=== PATIENT | male | born 1980 | race Caucasian/White ===

== ENCOUNTER 2023-12-21 10:43 | Emergency (ER) | payer OTHER, SELFPAY ==
[2023-12-21 10:47] LABS: Glucose - Point of Care 89 mg/dl (70-99)
[2023-12-21 10:48] VITALS: BP 147/95
--- NOTE | 2023-12-21 11:35 | ED.GENMED ---
History of Present Illness
General
Chief Complaint: Dizziness
Source: patient
Exam Limitations: none
Time Seen by Provider: 12/21/23 11:15
Nursing documentation reviewed up to this point in time: agreed with
Travel History
Have you had any contact with someone who has COVID-19?: No
Do you have any symptoms of coronavirus? Fever > 100 degrees, chills, cough, shortness of breath, sore throat, loss of taste or smell, muscle aches, or headache?: No
History of Present Illness
History of Present Illness:
43 yo male with hx of migraines presents stating for past 4 days has had progressively worsening 'wavy sensation' momentary and intermittent at first, more frequent past 2 days. Past 2 days also developed R frontal forehead 'deep pain' 'discomfort.'
Also past 2 days forehead, both temples down cheeks to top teeth has numbness and tingling that comes and goes. Also intermittent left parietal and posterior head pains past two days.
Also noticed intermittent blurry and intermittent double vision a few times a day. Mild intermittent nausea, no vomiting, no head trauma.
Hx migraines, takes monthly Emgality injection. Took Ubrelvy last 6 pm with no relief.
Past History
Past History
ED Past Medical History: Psychiatric (On Buspar, Lexapro, Risperdal) and Other (Migraines)
ED Past Surgical History: Orthopedic
Social History
Tobacco: Non-smoker
Alcohol: None
Personal:
Living: with family
Employment: Employed
Review of Systems
Review of Systems
Allergies reviewed?: Yes
All Other Systems: ROS reviewed and negative except as documented in HPI and ROS
Constitutional: Denies fever
Respiratory: Denies trouble breathing
Cardiac: Denies chest pain
ABD/GI: Reports nausea; Denies abdominal pain or vomiting
Musculoskeletal: Reports no symptoms; Denies neck pain
Skin: Reports no symptoms
Neurological: Reports headache; Denies dizzy, weakness or numbness
Phy Exam
Physical Exam
Physical Exam:
GENERAL: No acute distress. A&Ox3.
CONSTITUTIONAL: Afebrile.
EYES: PERRL, conjunctivae normal, no nystagmus. +binocular and monocular diplopia
Neck: Supple
ENMT: moist mucus membranes, Pharynx nl, TMs normal
RESPIRATORY: Regular respirations, nonlabored, lungs clear.
CARDIOVASCULAR: Regular rate and rhythm, no murmurs, no rubs.
GI: Soft, nontender, normal BS
MUSCULOSKELETAL: Moves with ease. Well perfused.
SKIN: Warm, dry, pink
PSYCH: Normal mood and affect. Well kept, interactive and appropriate
NEUROLOGIC: Awake, alert and oriented. Speech clear, CN 2-12 intact, No focal neurological deficits, finger to nose intact, ambulates well with steady gait.
Course
Orders/Labs/Results
Orders:
Orders
12/21/23 10:50
ECG [Electrocardiogram (*1)] Urgent
Reason for Study: Vertigo / Dizzy
12/21/23 10:51
EKG- Treatment ONCE
12/21/23 11:34
CT Head W/o Iv Contrast Urgent
Comment:
Reason For Exam: headache, diplopia
12/21/23 13:12
Visual Acuity- Treatment ONCE
Vital Signs
Initial and Last Documented VS:
Initial Vital Signs
Temp Pulse Resp BP Pulse Ox
98.6 F 85 18 147/95 99
12/21/23 10:48 12/21/23 10:48 12/21/23 10:48 12/21/23 10:48 12/21/23 10:48
Last Documented Vital Signs
Temp Pulse Resp BP Pulse Ox
98.6 F 67 20 122/75 100
12/21/23 10:48 12/21/23 13:30 12/21/23 13:30 12/21/23 13:00 12/21/23 13:30
Licensed And Certified Midwife consulted with Physician
Licensed And Certified Midwife consulted with physician?: Yes
Name of Physician Consulted: Galo
MDM/Problems Addressed
Differential Diagnosis Includes:
atypical migraine, vestibular, brain mass/bleed, CVA
MDM/Problems Addressed:
43 yo male with hx of migraines presents stating for past 4 days has had progressively worsening 'wavy sensation' momentary and intermittent at first, more frequent past 2 days. Past 2 days also developed R frontal forehead 'deep pain' 'discomfort.'
Also past 2 days forehead, both temples down cheeks to top teeth has numbness and tingling that comes and goes. Also intermittent left parietal and posterior head pains past two days.
Also noticed intermittent blurry and intermittent double vision a few times a day. Mild intermittent nausea, no vomiting, no head trauma.
Hx migraines, takes monthly Emgality injection. Took Ubrelvy last 6 pm with no relief.
Physical exam unremarkable: no nystagmus, no weakness, no risk factors for CVA
No vestibular symptoms
Most likely atypical migraine
Dr. Park is his neurologist, last visit routine 3 months ago, will call them today
Case discussed with Dr. Rosenthal who agrees with assessment and plan.
Pt is comfortable with plan
Pt ambulated out with normal gait at discharge
Chronic conditions affecting care: Neurological disorder (migraines)
*Critical Care Note
Total Time (30-74mins, 75-104mins- exclusive of procedures): Not Applicable
ED Attending Note
-
Portions of this chart may have been created with voice recognition software.� Occasional wrong word or��sound alike� substitutions may have occurred due to the inherent limitations of voice recognition software.
Discharge Plan
Departure
Patient Disposition: Home (Routine Discharge)
Date of Disposition: 12/21/23
Time of Disposition: 13:16
Patient with high blood pressure during this ER visit?: Yes
Condition: Good
Discharge Problem:
Atypical migraine
Instructions: Migraine in adults
Referrals:
Karla Barboza, [Family Provider] -
Danielle Park DO [Active] - Next open appointment
Activity Restrictions/Additional Instructions:
As we discussed, call Dr. Park's office today and make next available appointment.
Your head CT shows nothing worrisome
Interventions
Interventions:
*Risk Screen - Suicide Last Done: 12/21/23 10:48
*General Assessment Last Done: 12/21/23 10:48
*Neglect/Abuse Screening Last Done: 12/21/23 10:48
ED- Fall Risk Assessment Last Done: 12/21/23 13:40
*ED COVID-19 Vaccine History Last Done: 12/21/23 13:40
*Nursing Disposition Last Done: 12/21/23 13:40
ED- Neurological Assessment Last Done: 12/21/23 12:38
ED- Cardiac Assessment Last Done: 12/21/23 13:40
ED Swallowing Screen Last Done: 12/21/23 13:41
Discharge Date and Time
Discharge Date/Time: 12/21/23 13:43
Print Language: GEORGIAN
[2023-12-21 12:38] VITALS: BP 133/85
[2023-12-21 13:00] VITALS: BP 122/75
== END 2023-12-21 13:43 | disposition home or self-care (01) ==
LOC: EMR 10:43
PROVIDERS: EMERGENCY PHYSICIAN Emergency Medicine; FAMILY PHYSICIAN Family Medicine
DX: G43.009 Migraine without aura, not intractable, without status migrainosus (principal); H53.2 Diplopia; R11.0 Nausea; R20.0 Anesthesia of skin; R20.2 Paresthesia of skin; R03.0 Elevated blood-pressure reading, without diagnosis of hypertension; Z79.899 Other long term (current) drug therapy
CPT/HCPCS: 99284; 70450; 82962; 93005

== ENCOUNTER → 2024-02-24 07:32 | Outpatient (REF) | payer OTHER, SELFPAY | LOC: MRI 3T 07:32 | PROVIDERS: ATTENDING PHYSICIAN Psychiatry & Neurology Neurology; FAMILY PHYSICIAN Family Medicine | DX: G43.109 Migraine with aura, not intractable, without status migrainosus (principal) | CPT/HCPCS: 70553 ==

== ENCOUNTER → 2024-12-18 07:43 | Outpatient (REF) | payer BC, SELFPAY | LOC: MRI 07:43 | PROVIDERS: ATTENDING PHYSICIAN Nurse Practitioner Adult Health; FAMILY PHYSICIAN Physician Assistant | DX: G43.109 Migraine with aura, not intractable, without status migrainosus (principal); H81.10 Benign paroxysmal vertigo, unspecified ear; E34.8 Other specified endocrine disorders | CPT/HCPCS: 70553; A9575 ==